=== PATIENT | male | born 1975 | race African-American/Black ===

== ENCOUNTER 2019-10-08 11:15 | Inpatient (IN) | payer MEDICAID ==
[~2019-10-08] VITALS: Ht 182.9 cm; Wt 67.6 kg
[2019-10-08] MEDS ORDERED: LORAZEPAM 2MG/ML CPJ ONE (11:29)
[2019-10-08] MEDS ORDERED: LEVETIRACETAM 1000MG/100ML 100 ML IV ONE (11:30)
[2019-10-08] MEDS ORDERED: SODIUM CHLORIDE 0.9% 1,000 ML IV ONE (11:30)
[2019-10-08] MEDS ORDERED: LORAZEPAM 2MG/ML CPJ IV ONE (11:30)
[2019-10-08 12:12] LABS: BASOPHILS % 0.5 % (0.0-2.0); EOSINOPHILS % 1.9 % (0.0-5.0); HEMATOCRIT. 49.4 % (42.0-52.0); HEMOGLOBIN. 15.9 g/dL (14.0-18.0); LYMPHOCYTES % 62.3 % (20.0-50.0); MEAN CORPUSCULAR HEMOGLOBIN 29.7 pg (28.0-32.0); MEAN CORPUSCULAR VOLUME 92.5 fL (80.0-94.0); MEAN PLATELET VOLUME 9.3 fl (7.4-10.4); MONOCYTES % 6.1 % (2.0-8.0); NEUTROPHILS % 29.2 % (40.0-76.0); PLATELET 177 x1000/uL (130-400); RED BLOOD CELL COUNT 5.34 mill/uL (4.7-6.1); RED CELL DISTRIBUTION WIDTH 14.9 % (11.6-14.6)
[2019-10-08 12:19] LABS: CHLORIDE 110 mEq/L (98-107)
[2019-10-08 12:27] LABS: ETHANOL BLOOD < 10 mg/dL
[2019-10-08 12:30] LABS: CREATINE KINASE 183 IU/L (39-308)
[2019-10-08] MEDS ORDERED: SODIUM BICARBONATE 8.4% 1 MEQ/ML 50ML SYR IV ONE (13:15)
[2019-10-08 14:00] VITALS: BP 122/74
[2019-10-08 14:06] LABS: CLARITY URINE CLEAR (CLEAR); COLOR URINE YELLOW (YELLOW); KETONES URINE NEGATIVE (NEGATIVE); LEUKOCYTE ESTERASE URINE NEGATIVE (NEGATIVE); NITRITE URINE NEGATIVE (NEGATIVE); OCCULT BLOOD URINE 1+ (NEGATIVE); PROTEIN URINE 1+ (NEGATIVE); UROBILINOGEN URINE 0.2 E.U./dL (0.2-1.0)
[2019-10-08] MEDS ORDERED: LORAZEPAM 2MG/ML CPJ IV PRN (14:45)
[2019-10-08 15:03] LABS: *BENZODIAZEPINES SCREEN URINE NEGATIVE (NEGATIVE); *COCAINE SCREEN URINE NEGATIVE (NEGATIVE); CANNABINOID URINE SCREEN PRESUMTIVE POSITIVE (NEGATIVE); METHADONE URINE SCREEN NEGATIVE (NEGATIVE); OPIATES URINE SCREEN NEGATIVE (NEGATIVE); PHENCYCLIDINE URINE SCREEN NEGATIVE (NEGATIVE)
[2019-10-08 15:04] LABS: *AMPHETAMINES SCREEN URINE NEGATIVE (NEGATIVE); *BARBITURATES SCREEN URINE NEGATIVE (NEGATIVE)
[2019-10-08] MEDS ORDERED: ACETAMINOPHEN 325MG TABLET PO PRN (15:15)
[2019-10-08] MEDS ORDERED: ONDANSETRON HCL 4MG/2ML INJ IV PRN (15:15)
[2019-10-08 16:00] VITALS: BP 122/74
[2019-10-08 20:00] VITALS: BP 113/69
[2019-10-08] MEDS: LEVETIRACETAM 500MG TABLET PO SCH (21:17)
[2019-10-09] VITALS: BP 116/70
[2019-10-09 04:00] VITALS: BP 114/73
[2019-10-09 07:33] LABS: BASOPHILS % 0.7 % (0.0-2.0); EOSINOPHILS % 1.2 % (0.0-5.0); HEMOGLOBIN. 15.3 g/dL (14.0-18.0); LYMPHOCYTES % 45.4 % (20.0-50.0); MEAN CORPUSCULAR HEMOGLOBIN 30.1 pg (28.0-32.0); MEAN CORPUSCULAR VOLUME 88.6 fL (80.0-94.0); MEAN PLATELET VOLUME 9.4 fl (7.4-10.4); MONOCYTES % 9.4 % (2.0-8.0); NEUTROPHILS % 43.3 % (40.0-76.0); PLATELET 163 x1000/uL (130-400); RED BLOOD CELL COUNT 5.08 mill/uL (4.7-6.1); RED CELL DISTRIBUTION WIDTH 14.6 % (11.6-14.6)
[2019-10-09 08:00] VITALS: BP 112/72
[2019-10-09 08:20] LABS: CHLORIDE 110 mEq/L (98-107)
[2019-10-09] MEDS: FOLIC ACID 1MG TABLET PO SCH (09:27)
[2019-10-09] MEDS: MULTIVITAMINS,THER W-MINERALS TABLET PO SCH (09:27)
[2019-10-09] MEDS: LEVETIRACETAM 500MG TABLET PO SCH ×2 (09:27→21:10)
[2019-10-09] MEDS: THIAMINE HCL 100MG TABLET PO SCH (09:28)
[2019-10-09 11:36] VITALS: BP 111/75
[2019-10-09 16:00] VITALS: BP_SYST 111; BP_SYST 124; BP_DIAS 65; BP_DIAS 76
[2019-10-09 20:00] VITALS: BP 114/69
[2019-10-10] VITALS: BP 113/78
[2019-10-10 04:00] VITALS: BP 112/74
[2019-10-10 08:00] VITALS: BP 114/69
[2019-10-10] MEDS: FOLIC ACID 1MG TABLET PO SCH (09:00)
[2019-10-10] MEDS: LEVETIRACETAM 500MG TABLET PO SCH (09:00)
[2019-10-10] MEDS: THIAMINE HCL 100MG TABLET PO SCH (09:00)
[2019-10-10] MEDS: MULTIVITAMINS,THER W-MINERALS TABLET PO SCH (09:01)
[2019-10-10] MEDS ORDERED: KEPP500 MT (11:15)
[2019-10-10 12:00] VITALS: BP 108/75
[2019-10-10 12:50] VITALS: BP 108/75
== END 2019-10-10 13:45 | disposition home or self-care (01) | DRG 53 ==
LOC: ER 11:15 → 5WST 12:24 → ENRESERV 12:55 → EDBEDREQTM 13:17 → EDBEDREQ 13:17
PROVIDERS: ADMIT Internal Medicine; ATTEND Internal Medicine
DX: G40.409 Other generalized epilepsy and epileptic syndromes, not intractable, without status epilepticus (principal); E87.8 Other disorders of electrolyte and fluid balance, not elsewhere classified; F12.90 Cannabis use, unspecified, uncomplicated; Z79.899 Other long term (current) drug therapy
CPT/HCPCS: 36415; 70544; 70553; 71045; 80048; 80053; 80305; 80320; 81003; 82542; 82550; 85025; 99291; J1953; J2060; J3490; J7030; G0480